=== PATIENT | male | born 1985 | race Two or more races ===

== ENCOUNTER 2025-04-20 15:27 | Emergency (ER) | payer OTHER ==
[~2025-04-20] VITALS: Ht 165.1 cm; Wt 102.3 kg
[2025-04-20 15:31] VITALS: BP 128/92; PULSE 107; RESP 18; TEMP 98.7; O2SAT 98
[2025-04-20] MEDS ORDERED: SULF-261 PO (15:48)
[2025-04-20] MEDS ORDERED: CEPH-558 PO (15:48)
[2025-04-20] MEDS: SULFAMETHOX/TRIMETH DS 800-160 MG/TABLET PO ONE (16:01)
[2025-04-20] MEDS: CEPHALEXIN MONOHYDRATE 500 MG CAPSULE PO ONE (16:02)
== END 2025-04-20 16:02 | disposition home or self-care (01) ==
LOC: EMS 15:27
DX: L03.312 Cellulitis of back [any part except buttock and flank] (principal)
CPT/HCPCS: 99284; Z7502; Z7610